=== PATIENT | male | born 1930 | race Two or more races ===

== ENCOUNTER 2021-01-19 21:32 | Inpatient (IN) | payer MEDICARE ==
[~2021-01-19] VITALS: Ht 188 cm; Wt 90.7 kg
[2021-01-19 21:32] VITALS: BP 139/80
[2021-01-19 21:45] VITALS: BP 139/80
[2021-01-19] MEDS ORDERED: CLONIDINE 0.1MG TABLET PO PRN (22:45)
[2021-01-19] MEDS ORDERED: ACETAMINOPHEN 325MG TABLET PO PRN ×2 (22:45)
[2021-01-20 06:43] LABS: BASOPHILS % 0.8 % (0.0-2.0); EOSINOPHILS % 4.8 % (0.0-5.0); HEMATOCRIT. 44.6 % (42.0-52.0); HEMOGLOBIN. 15.1 g/dL (14.0-18.0); LYMPHOCYTES % 46.9 % (20.0-50.0); MEAN CORPUSCULAR HEMOGLOBIN 28.9 pg (28.0-32.0); MEAN CORPUSCULAR VOLUME 85.6 fL (80.0-94.0); MEAN PLATELET VOLUME 10.3 fl (7.4-10.4); MONOCYTES % 14.2 % (2.0-8.0); NEUTROPHILS % 33.3 % (40.0-76.0); PLATELET 187 x1000/uL (130-400); RED CELL DISTRIBUTION WIDTH 13.7 % (11.6-14.6)
[2021-01-20 07:03] LABS: CHLORIDE 108 mEq/L (98-107)
[2021-01-20 08:00] VITALS: BP 160/74
[2021-01-20] MEDS: AMLODIPINE 5MG TABLET PO SCH ×2 (08:43→21:13)
[2021-01-20] MEDS: DONEPEZIL HCL 5MG TABLET PO SCH (17:30)
[2021-01-20 19:16] LABS: CLARITY URINE CLOUDY (CLEAR); COLOR URINE ORANGE (YELLOW); KETONES URINE NEGATIVE (NEGATIVE); LEUKOCYTE ESTERASE URINE 1+ (NEGATIVE); NITRITE URINE NEGATIVE (NEGATIVE); OCCULT BLOOD URINE 3+ (NEGATIVE); PH URINE 5.5 (4.5-8.0); PROTEIN URINE 2+ (NEGATIVE); SPECIFIC GRAVITY URINE 1.018 (1.005-1.030)
[2021-01-20 20:00] VITALS: BP 140/66
[2021-01-21 08:00] VITALS: BP 143/65
[2021-01-21] MEDS: DONEPEZIL HCL 5MG TABLET PO SCH (08:28)
[2021-01-21] MEDS: AMLODIPINE 5MG TABLET PO SCH ×2 (08:28→21:08)
[2021-01-21 08:32] LABS: BASOPHILS % 0.2 % (0.0-2.0); EOSINOPHILS % 4.7 % (0.0-5.0); HEMATOCRIT. 43.6 % (42.0-52.0); HEMOGLOBIN. 14.6 g/dL (14.0-18.0); LYMPHOCYTES % 41.1 % (20.0-50.0); MEAN CORPUSCULAR HEMOGLOBIN 28.6 pg (28.0-32.0); MEAN CORPUSCULAR VOLUME 85.4 fL (80.0-94.0); MONOCYTES % 13.7 % (2.0-8.0); NEUTROPHILS % 40.3 % (40.0-76.0); PLATELET 202 x1000/uL (130-400); RED CELL DISTRIBUTION WIDTH 13.2 % (11.6-14.6)
[2021-01-21 08:40] LABS: CHLORIDE 106 mEq/L (98-107)
[2021-01-21 08:47] LABS: TOTAL IRON BINDING CAPACITY 272 ug/dL (250-450)
[2021-01-21 08:48] LABS: HDL CHOLESTEROL 31 mg/dL (40-59); LDL CHOLESTEROL 92 mg/dL (5-100)
[2021-01-21 09:02] LABS: FOLIC ACID (FOLATE) SERUM 14.5 ng/mL (>5.38)
[2021-01-21 10:34] LABS: PROSTRATE SPECIFIC AG TOTAL 5.37 ng/mL (0.0-4.0)
[2021-01-21] MEDS: ERGOCALCIFEROL 50000UNITS CAPSULE PO SCH (16:15)
[2021-01-21 20:00] VITALS: BP 141/81
[2021-01-22 08:00] VITALS: BP 139/81
[2021-01-22] MEDS: DONEPEZIL HCL 5MG TABLET PO SCH (08:55)
[2021-01-22] MEDS: AMLODIPINE 5MG TABLET PO SCH ×2 (08:55→20:49)
[2021-01-22 20:00] VITALS: BP 133/65
[2021-01-23 08:00] VITALS: BP 156/71
[2021-01-23] MEDS: DONEPEZIL HCL 5MG TABLET PO SCH (09:22)
[2021-01-23] MEDS: AMLODIPINE 5MG TABLET PO SCH ×2 (09:22→20:42)
[2021-01-23] MEDS ORDERED: LACTULOSE 20G/30ML UDC PO SCH (17:00)
[2021-01-23 20:00] VITALS: BP 154/67
[2021-01-24 07:15] LABS: HEMATOCRIT. 43.6 % (42.0-52.0); HEMOGLOBIN. 14.9 g/dL (14.0-18.0); MEAN CORPUSCULAR HEMOGLOBIN 28.9 pg (28.0-32.0); MEAN CORPUSCULAR VOLUME 84.6 fL (80.0-94.0); MEAN PLATELET VOLUME 9.9 fl (7.4-10.4); PLATELET 254 x1000/uL (130-400); RED BLOOD CELL COUNT 5.15 mill/uL (4.7-6.1); RED CELL DISTRIBUTION WIDTH 13.6 % (11.6-14.6)
[2021-01-24 07:32] LABS: CHLORIDE 105 mEq/L (98-107)
[2021-01-24 08:00] VITALS: BP 170/77
[2021-01-24] MEDS: AMLODIPINE 5MG TABLET PO SCH (09:11)
[2021-01-24] MEDS: DONEPEZIL HCL 5MG TABLET PO SCH (09:11)
[2021-01-24 17:25] LABS: PLATELET ESTIMATE NORMAL
[2021-01-24 20:00] VITALS: BP 119/59
[2021-01-25 08:00] VITALS: BP 121/69
[2021-01-25] MEDS: AMLODIPINE 5MG TABLET PO SCH ×2 (08:37→21:21)
[2021-01-25] MEDS: DONEPEZIL HCL 5MG TABLET PO SCH (08:37)
[2021-01-25 20:30] VITALS: BP 111/64
[2021-01-26 08:30] VITALS: BP 148/75
[2021-01-26] MEDS: DONEPEZIL HCL 5MG TABLET PO SCH (09:07)
[2021-01-26] MEDS: AMLODIPINE 5MG TABLET PO SCH ×2 (09:07→21:27)
[2021-01-26 20:00] VITALS: BP 123/64
[2021-01-27 08:21] VITALS: BP 138/72
[2021-01-27] MEDS: DONEPEZIL HCL 5MG TABLET PO SCH (09:12)
[2021-01-27] MEDS: AMLODIPINE 5MG TABLET PO SCH ×2 (09:12→21:16)
[2021-01-27 13:10] LABS: CHLORIDE 103 mEq/L (98-107)
[2021-01-27] MEDS ORDERED: BISACODYL 5MG TABLET PO PRN (14:30)
[2021-01-28 08:00] VITALS: BP 149/75
[2021-01-28 08:11] VITALS: BP 149/75
[2021-01-28] MEDS: AMLODIPINE 5MG TABLET PO SCH ×2 (08:12→21:17)
[2021-01-28] MEDS: ERGOCALCIFEROL 50000UNITS CAPSULE PO SCH (08:12)
[2021-01-28] MEDS: DONEPEZIL HCL 5MG TABLET PO SCH (08:12)
[2021-01-28 20:00] VITALS: BP 118/58
[2021-01-29 08:00] VITALS: BP 149/89
[2021-01-29] MEDS: AMLODIPINE 5MG TABLET PO SCH ×2 (09:14→20:34)
[2021-01-29] MEDS: DONEPEZIL HCL 5MG TABLET PO SCH (09:14)
[2021-01-29] MEDS ORDERED: LIDOCAINE 5% PATCH TOP SCH (14:15)
[2021-01-29 20:00] VITALS: BP 129/67
[2021-01-30 08:00] VITALS: BP 131/73
[2021-01-30] MEDS: DONEPEZIL HCL 5MG TABLET PO SCH (09:43)
[2021-01-30] MEDS: AMLODIPINE 5MG TABLET PO SCH (09:43)
[2021-01-30 14:29] VITALS: BP 131/73
[2021-01-30 19:06] LABS: 25-HYDROXY VITAMIN D3 20 ng/mL (.)
== END 2021-01-30 17:38 | disposition home health service (06) | DRG 71 ==
PROVIDERS: ADMIT Physical Medicine & Rehabilitation Spinal Cord Injury Medicine; ATTEND Internal Medicine Nephrology
DX: G93.41 Metabolic encephalopathy (principal); E72.20 Disorder of urea cycle metabolism, unspecified; D64.9 Anemia, unspecified; D72.819 Decreased white blood cell count, unspecified; E11.9 Type 2 diabetes mellitus without complications; E87.8 Other disorders of electrolyte and fluid balance, not elsewhere classified; F03.90 Unspecified dementia, unspecified severity, without behavioral disturbance, psychotic disturbance, mood disturbance, and anxiety; I10 Essential (primary) hypertension; F39 Unspecified mood [affective] disorder; F41.9 Anxiety disorder, unspecified; R26.9 Unspecified abnormalities of gait and mobility; R53.81 Other malaise; E53.8 Deficiency of other specified B group vitamins; R74.01 Elevation of levels of liver transaminase levels; R97.20 Elevated prostate specific antigen [PSA]; I25.2 Old myocardial infarction; Z82.49 Family history of ischemic heart disease and other diseases of the circulatory system; Z83.3 Family history of diabetes mellitus; Z88.0 Allergy status to penicillin
CPT/HCPCS: 36415; 80053; 80061; 81003; 82140; 82306; 82607; 82728; 82746; 83036; 83540; 83550; 84134; 84153; 84443; 85025; 92523; 93970; 97110; 97116; 97162; 97166; 97530; 97535; G0103

== ENCOUNTER 2021-02-10 14:30 | Inpatient (IN) | payer MEDICARE ==
[~2021-02-10] VITALS: Ht 170.2 cm; Wt 70.4 kg
[2021-02-10 15:27] LABS: HEMATOCRIT. 40.7 % (42.0-52.0); HEMOGLOBIN. 13.7 g/dL (14.0-18.0); MEAN CORPUSCULAR HEMOGLOBIN 28.1 pg (28.0-32.0); MEAN CORPUSCULAR VOLUME 83.5 fL (80.0-94.0); MEAN PLATELET VOLUME 9.3 fl (7.4-10.4); PLATELET 219 x1000/uL (130-400); RED BLOOD CELL COUNT 4.88 mill/uL (4.7-6.1); RED CELL DISTRIBUTION WIDTH 13.7 % (11.6-14.6)
[2021-02-10 15:33] LABS: CHLORIDE 109 mEq/L (98-107)
[2021-02-10 15:37] LABS: ETHANOL BLOOD < 10 mg/dL
[2021-02-10 15:38] LABS: PROTHROMBIN TIME 11.2 sec (9.6-11.0)
[2021-02-10 15:39] LABS: LDL CHOLESTEROL 94 mg/dL (5-100)
[2021-02-10 16:05] LABS: PLATELET ESTIMATE NORMAL
[2021-02-10] MEDS ORDERED: MORPHINE SULFATE 2 MG/ML CPJ (NOT FOR IM USE) IV PRN (19:00)
[2021-02-10] MEDS ORDERED: DIPHENHYDRAMINE 50MG/ML VIAL IV PRN (19:00)
[2021-02-10] MEDS ORDERED: IPRATROPIUM/ALBUTEROL 0.5-3(2.5)MG/3ML NEB NEB PRN (19:00)
[2021-02-10] MEDS ORDERED: CLONIDINE 0.1MG TABLET PO PRN (19:00)
[2021-02-10] MEDS ORDERED: NA PHOS,M-B/NA PHOS,DI-BA ENEMA 118ML PR PRN (19:00)
[2021-02-10] MEDS ORDERED: HYDROCODONE/ACETAMINOPHEN 5/325MG TABLET PO PRN (19:00)
[2021-02-10] MEDS ORDERED: LORAZEPAM 2MG/ML CPJ IV PRN (19:00)
[2021-02-10] MEDS ORDERED: ONDANSETRON HCL 4MG/2ML INJ IV PRN (19:00)
[2021-02-10] MEDS ORDERED: MAGNESIUM/ALUMINUM HYDROXIDE/SIMETHICONE 30ML UDC PO PRN (19:00)
[2021-02-10] MEDS ORDERED: GUAIFENESIN 200MG/10ML SUGAR FREE UDC PO PRN (19:00)
[2021-02-10] MEDS ORDERED: DOCUSATE SODIUM 100MG CAPSULE PO PRN (19:00)
[2021-02-10 19:15] LABS: CLARITY URINE CLEAR (CLEAR); COLOR URINE YELLOW (YELLOW); KETONES URINE NEGATIVE (NEGATIVE); LEUKOCYTE ESTERASE URINE TRACE (NEGATIVE); NITRITE URINE NEGATIVE (NEGATIVE); OCCULT BLOOD URINE 3+ (NEGATIVE); PH URINE 6.5 (4.5-8.0); PROTEIN URINE 1+ (NEGATIVE); SPECIFIC GRAVITY URINE 1.038 (1.005-1.030)
[2021-02-10] MEDS: SODIUM CHLORIDE 0.45% 1,000 ML IV SCH (19:35)
[2021-02-10 19:53] LABS: *AMPHETAMINES SCREEN URINE NEGATIVE (NEGATIVE)
[2021-02-10 19:54] LABS: *BARBITURATES SCREEN URINE NEGATIVE (NEGATIVE); *BENZODIAZEPINES SCREEN URINE NEGATIVE (NEGATIVE); *COCAINE SCREEN URINE NEGATIVE (NEGATIVE); METHADONE URINE SCREEN NEGATIVE (NEGATIVE); OPIATES URINE SCREEN NEGATIVE (NEGATIVE); PHENCYCLIDINE URINE SCREEN NEGATIVE (NEGATIVE)
[2021-02-10 19:55] LABS: CANNABINOID URINE SCREEN NEGATIVE (NEGATIVE)
[2021-02-10] MEDS: ENOXAPARIN 40MG/0.4ML SYR SUBCUT SCH (20:12)
[2021-02-10 21:25] VITALS: BP 152/81
[2021-02-10 21:30] VITALS: BP 152/81
[2021-02-10] MEDS ORDERED: NALOXONE HCL 0.4MG/ML VIAL IV PRN (23:00)
[2021-02-11] VITALS: BP 141/76
[2021-02-11 01:21] LABS: CHLORIDE 110 mEq/L (98-107)
[2021-02-11 04:00] VITALS: BP 149/83
[2021-02-11] MEDS ORDERED: DONE23TA3 PO (04:18)
[2021-02-11] MEDS ORDERED: AMLO5TAB88 PO (04:18)
[2021-02-11 08:00] VITALS: BP 141/66
[2021-02-11] MEDS: ASPIRIN 81MG EC TABLET PO SCH (09:14)
[2021-02-11 09:40] LABS: CHLORIDE 108 mEq/L (98-107)
[2021-02-11 09:47] LABS: LDL CHOLESTEROL 102 mg/dL (5-100)
[2021-02-11 09:48] LABS: HDL CHOLESTEROL 33 mg/dL (40-59)
[2021-02-11 09:49] LABS: T4 FREE 0.87 ng/dL (0.76-1.46)
[2021-02-11 12:00] VITALS: BP 133/68
[2021-02-11 16:00] VITALS: BP 123/66
[2021-02-11 16:46] LABS: HEMATOCRIT. 37.6 % (42.0-52.0); MEAN CORPUSCULAR HEMOGLOBIN 28.4 pg (28.0-32.0); MEAN CORPUSCULAR VOLUME 82.3 fL (80.0-94.0); MEAN PLATELET VOLUME 9.2 fl (7.4-10.4); PLATELET 170 x1000/uL (130-400); RED BLOOD CELL COUNT 4.57 mill/uL (4.7-6.1); RED CELL DISTRIBUTION WIDTH 13.6 % (11.6-14.6)
[2021-02-11 17:09] LABS: CREATINE KINASE MB FRACTION 1.9 ng/mL (0.5-3.6)
[2021-02-11 17:17] LABS: PLATELET ESTIMATE NORMAL
[2021-02-11 20:00] VITALS: BP 106/59
[2021-02-11] MEDS: ENOXAPARIN 40MG/0.4ML SYR SUBCUT SCH (20:29)
[2021-02-12] VITALS: BP 122/80
[2021-02-12 01:35] LABS: CREATINE KINASE MB FRACTION 1.7 ng/mL (0.5-3.6)
[2021-02-12 04:00] VITALS: BP 134/76
[2021-02-12 07:32] LABS: CREATINE KINASE MB FRACTION 1.5 ng/mL (0.5-3.6)
[2021-02-12 07:49] LABS: VITAMIN B12 SERUM 230 pg/mL (211-911)
[2021-02-12 08:00] VITALS: BP 145/69
[2021-02-12] MEDS: ASPIRIN 81MG EC TABLET PO SCH (08:37)
[2021-02-12 12:00] VITALS: BP 163/70
[2021-02-12 16:00] VITALS: BP 144/76
[2021-02-12] MEDS ORDERED: CYANOCOBALAMIN 1000MCG/ML VIAL IM NR (17:15)
[2021-02-12] MEDS: SODIUM CHLORIDE 0.45% 1,000 ML IV SCH (18:36)
[2021-02-12 20:00] VITALS: BP 116/62
[2021-02-12] MEDS ORDERED: ATORVASTATIN CALCIUM 10MG TABLET PO SCH ×2 (21:00)
[2021-02-12] MEDS: ENOXAPARIN 40MG/0.4ML SYR SUBCUT SCH (21:59)
[2021-02-12] MEDS: ATORVASTATIN CALCIUM 40MG TABLET PO SCH (21:59)
[2021-02-13] VITALS: BP 106/68
[2021-02-13] MEDS: ACETAMINOPHEN 325MG TABLET PO PRN ×2 (00:37→06:25)
[2021-02-13 05:00] VITALS: BP 114/63
[2021-02-13 08:00] VITALS: BP 121/68
[2021-02-13] MEDS: ASPIRIN 81MG EC TABLET PO SCH (08:59)
[2021-02-13] MEDS: LEVOFLOXACIN 500MG PREMIX 100 ML IV SCH (10:30)
[2021-02-13 12:00] VITALS: BP 113/58
[2021-02-13] MEDS: SODIUM CHLORIDE 0.45% 1,000 ML IV SCH (15:25)
[2021-02-13 16:00] VITALS: BP 121/60
[2021-02-13 20:00] VITALS: BP 141/69
[2021-02-13] MEDS: ATORVASTATIN CALCIUM 40MG TABLET PO SCH (21:14)
[2021-02-13] MEDS: ENOXAPARIN 40MG/0.4ML SYR SUBCUT SCH (21:16)
[2021-02-14] VITALS: BP 123/67
[2021-02-14 04:00] VITALS: BP 134/63
[2021-02-14] MEDS: SODIUM CHLORIDE 0.45% 1,000 ML IV SCH (05:31)
[2021-02-14 07:26] LABS: CHLORIDE 105 mEq/L (98-107)
[2021-02-14 07:32] LABS: BASOPHILS % 0.4 % (0.0-2.0); EOSINOPHILS % 1.9 % (0.0-5.0); HEMATOCRIT. 38.9 % (42.0-52.0); LYMPHOCYTES % 15.8 % (20.0-50.0); MEAN CORPUSCULAR HEMOGLOBIN 28.5 pg (28.0-32.0); MEAN CORPUSCULAR VOLUME 85.2 fL (80.0-94.0); MEAN PLATELET VOLUME 9.7 fl (7.4-10.4); MONOCYTES % 12.1 % (2.0-8.0); NEUTROPHILS % 69.8 % (40.0-76.0); PLATELET 128 x1000/uL (130-400); RED BLOOD CELL COUNT 4.56 mill/uL (4.7-6.1); RED CELL DISTRIBUTION WIDTH 13.8 % (11.6-14.6)
[2021-02-14 08:00] VITALS: BP 142/62
[2021-02-14] MEDS: CLOPIDOGREL 75MG TABLET PO SCH (08:31)
[2021-02-14] MEDS: LEVOFLOXACIN 500MG PREMIX 100 ML IV SCH (08:31)
[2021-02-14] MEDS: ASPIRIN 81MG EC TABLET PO SCH (08:32)
[2021-02-14 12:00] VITALS: BP 114/66
[2021-02-14 16:00] VITALS: BP 128/64
[2021-02-14 20:00] VITALS: BP 113/65
[2021-02-14] MEDS: ATORVASTATIN CALCIUM 40MG TABLET PO SCH (22:08)
[2021-02-14] MEDS: ENOXAPARIN 40MG/0.4ML SYR SUBCUT SCH (22:09)
[2021-02-15] VITALS: BP 142/70
[2021-02-15 04:00] VITALS: BP 158/90
[2021-02-15 08:00] VITALS: BP 145/69
[2021-02-15] MEDS: CLOPIDOGREL 75MG TABLET PO SCH (08:00)
[2021-02-15] MEDS: SODIUM CHLORIDE 0.45% 1,000 ML IV SCH (08:00)
[2021-02-15] MEDS: ASPIRIN 81MG EC TABLET PO SCH (08:00)
[2021-02-15] MEDS: LEVOFLOXACIN 500MG PREMIX 100 ML IV SCH (08:00)
[2021-02-15 10:40] VITALS: BP 145/69
== END 2021-02-15 13:25 | disposition home health service (06) | DRG 64 ==
LOC: ER 14:38 → EDBEDREQTM 18:49 → EDBEDREQ 18:49 → ENRESERV 20:32 → 7EST 21:34
PROVIDERS: ADMIT Internal Medicine; ATTEND Internal Medicine
PROC: 4A10X4Z Monitoring of Central Nervous Electrical Activity, External Approach (ICD-10-PCS; principal; 2021-02-12)
DX: I63.9 Cerebral infarction, unspecified (principal); N17.0 Acute kidney failure with tubular necrosis; G92 Toxic encephalopathy; E46 Unspecified protein-calorie malnutrition; E86.0 Dehydration; D64.9 Anemia, unspecified; F03.90 Unspecified dementia, unspecified severity, without behavioral disturbance, psychotic disturbance, mood disturbance, and anxiety; I10 Essential (primary) hypertension; R29.702 NIHSS score 2; I67.82 Cerebral ischemia; R29.810 Facial weakness; R47.01 Aphasia; Z88.0 Allergy status to penicillin; Z79.899 Other long term (current) drug therapy; Z68.24 Body mass index [BMI] 24.0-24.9, adult
CPT/HCPCS: 36415; 70496; 70498; 70551; 71045; 80048; 80053; 80061; 80305; 80307; 80320; 80329; 81003; 82550; 82553; 82607; 82962; 83036; 83721; 83880; 84439; 84443; 84484; 85025; 85379; 93005; 93306; 95816; 97161; 99291; C1893; J1650; J1956; J2270; J3420; G0480